=== PATIENT | male | born 1980 | race Hispanic/Latino ===

== ENCOUNTER → 2020-06-13 12:40 | Outpatient (CLI) | payer OTHER, SELFPAY ==
[2020-06-13] MEDS: COVID-19 VACC #1, MRNA(MOD) 100 MCG/0.5 ML VIAL IM (12:50)
== END ==
PROVIDERS: Visit Provider Internal Medicine
DX: Z23 Encounter for immunization (principal)
CPT/HCPCS: 0011A; 91301

== ENCOUNTER → 2020-07-12 12:40 | Outpatient (CLI) | payer OTHER, SELFPAY ==
[2020-07-12] MEDS: COVID-19 VACC #2, MRNA(MOD) 100 MCG/0.5 ML VIAL IM (12:47)
== END ==
PROVIDERS: Visit Provider Internal Medicine
DX: Z23 Encounter for immunization (principal)
CPT/HCPCS: 0012A; 91301